=== PATIENT | male | born 1945 | race Caucasian/White ===

== ENCOUNTER 2018-01-22 06:33 | Day surgery (SDC) | payer MEDICARE, OTHER ==
[~2018-01-22 06:33] MED LIST: Acetaminophen TAB* 325 MG PO PRN; Buffered Lidocaine 0.9% SYRIN* 5 ML/SYR SYRINGE INTRADERM ONE; mitoMYcin 0.2 MG (0.02%) in Sterile Water for Inj* 1 ML SCH
[2018-01-22] MEDS ORDERED: Midazolam* 1 MG/ML 5 ML VIAL (5 MG) ONE (07:38)
[2018-01-22 08:08] VITALS: BP 119/65
--- NOTE | 2018-01-22 11:10 | OP ---
OPERATIVE REPORT: DATE OF OPERATION: 01/22/18 DATE OF : 41 SURGEON: Ankur Aragon MD. ANESTHESIA: Local MAC. PRE-OP DIAGNOSIS: Uncontrolled glaucoma, right eye. POST-OP DIAGNOSIS: OPERATIVE PROCEDURE: Insertion of Xen Gel stent, right eye. COMPLICATIONS: None. DESCRIPTION OF PROCEDURE: The patient was prepped and draped in the usual sterile fashion. Lid spec ulum was placed on the right eye. Topical 2% lidocaine with epinephrine was placed, lid speculum bryan vincent. The paracentesis was made with a 20- gauge needle at the 10 o'clock position. 1% intracameral non-preservative lidocaine was infused into the anterior chamber followed by Healon. A 1.8-mm clear corneal incision made at the 7 o'clock position. A 3-mm marking was made posterior to the limbus. M itomycin C 0.2 mg/mL 0.1 mL infused subconjunctivally on the superior fornix and the Xen implant was placed transsclerally at the 1 o'clock position without difficulty. BSS was used to irrigate out the Healon. All incisions were checked and found to be watertight. Topical Maxitrol drops were given a nd then the shield placed. [id number]/[facility] #: [id number]
[2018-01-22] MEDS ORDERED: Lidocaine 1%* 5 ML VIAL ONE (12:38)
[2018-01-22] MEDS ORDERED: Lidocaine 2% EPI 1:200000 MPF*10-20 ML VIAL ONE (12:38)
[2018-01-22] MEDS ORDERED: Povidone Iodine 5% OPTH* 30 ML BTL ONE (12:38)
[2018-01-22] MEDS ORDERED: Neomycin/Polymy/Dex OPTH.SUSP* MAXITROL 0.1% 5 ML ONE (12:38)
[2018-01-22] MEDS ORDERED: Proparacaine 0.5% OPHTH.SOL* 15 ML BTL ONE (12:38)
== END 2018-01-22 08:15 | disposition home or self-care (01) ==
LOC: OREAST 06:33
PROVIDERS: ATTEND Specialist
DX: H40.1112 Primary open-angle glaucoma, right eye, moderate stage (principal); H40.1121 Primary open-angle glaucoma, left eye, mild stage; E11.9 Type 2 diabetes mellitus without complications; Z96.1 Presence of intraocular lens; Z87.891 Personal history of nicotine dependence
CPT/HCPCS: A9270-GY; C1725; J2250; J9280